=== PATIENT | male | born 1975 | race Caucasian/White ===

== ENCOUNTER → 2024-07-26 | Outpatient (CLI) | payer MEDICARE, MEDICAID, SELFPAY ==
--- NOTE | 2024-07-26 08:18 | XR_ITS ---
Examination: Right knee 4 views TECHNIQUE: Standing AP oblique lateral axial right knee 4 views Exam date and time: July 26, 2024 0918 hours Comparison December 05, 2023 INDICATIONS: Status post knee arthroplasty July 16, 2023. FINDINGS: Mild osteopenia Total right knee replacement Satisfactory alignment No loosening of the prosthetic components No fracture IMPRESSION: Total right knee replacement with satisfactory alignment
== END | disposition home or self-care (01) ==
LOC: CDIM 08:02
PROVIDERS: Referring Provider Orthopaedic Surgery Adult Reconstructive Orthopaedic Surgery; Visit Provider Orthopaedic Surgery Adult Reconstructive Orthopaedic Surgery
DX: M17.11 Unilateral primary osteoarthritis, right knee (principal); Z96.651 Presence of right artificial knee joint
CPT/HCPCS: 73564

== ENCOUNTER 2024-08-03 08:22 | Outpatient (AMB) | payer MEDICARE, MEDICAID, SELFPAY ==
[2024-08-03 08:38] VITALS: BP 161/92; PULSE 74; RESP 18; TEMP 36.3; O2SAT 98; BMI 30.1
--- NOTE | 2024-08-03 08:38 | PD.ORTHCLVIS ---
Vital signs 08/03/24 08:38 Height 1.78 m Height Method Stated Weight 95.51 kg Weight Measurement Method Standing Scale BMI 30.1 BP 161/92 H Blood Pressure Source Automatic Cuff Blood Pressure Location Right Upper Arm Position Sitting Respiration 18 Pulse 74 Pulse Source Monitor Temp 97.3 F Temp Source Temporal Artery Scan Pulse Oximetry (%) 98 Oxygen Delivery Method Room Air Med/Allergies Allergies & Medications Allergies carisoprodol [From Soma] Allergy (Severe, Verified 08/03/24 08:40) counter acts with epilepsy med,Seizure chloral hydrate Allergy (Severe, Verified 08/03/24 08:40) Swelling morphine Allergy (Severe, Verified 08/03/24 08:40) VOMITING tramadol Allergy (Severe, Verified 08/03/24 08:40) SWELLED Medication Reconciliation carbamazepine 200 mg tablet (Tegretol) 200 mg PO HS 07/06/19 [History Confirmed 08/03/24] carbamazepine 200 mg tablet,extended release,12 hr (Tegretol XR) 1,000 mg PO HS 07/06/19 [History Confirmed 08/03/24] carbamazepine 200 mg tablet,extended release,12 hr (Tegretol XR) 800 mg PO QDAY 07/06/19 [History Confirmed 08/03/24] phenobarbital 64.8 mg tablet 64.8 mg PO QDAY 07/06/19 [History Confirmed 08/03/24] amlodipine 5 mg tablet (Norvasc) 5 mg PO QDAY 07/08/23 [History Confirmed 08/03/24] clobazam 10 mg tablet 5 mg PO HS 07/08/23 [History Confirmed 08/03/24] lacosamide 200 mg tablet 200 mg PO BID 07/08/23 [History Confirmed 08/03/24] losartan 50 mg tablet (Cozaar) 50 mg PO QDAY 07/08/23 [History Confirmed 08/03/24] phenobarbital 64.8 mg tablet 64.8 mg PO QDAY 07/08/23 [History Confirmed 08/03/24] oxycodone-acetaminophen 5 mg-325 mg tablet (Percocet) 1 tab PO Q6H PRN pain #28 tabs 07/25/23 [Rx Confirmed 08/03/24] naproxen 500 mg tablet 500 mg PO bid #60 tabs 07/29/23 [Rx Confirmed 08/03/24] naproxen 500 mg tablet 500 mg PO bid #90 tabs 08/22/23 [Rx Confirmed 08/03/24] Subjective Visit Visit for: follow up visit and knee Immunization / Flu Flu Vaccine in the Last 12 Months: No Flu Vaccine Exclusion Criteria: No Exclusion Criteria History of Present Illness Chief complaint: 6 MONTHS FOLLOW UP TKA Date of 1st surgery (if applicable): 07/08/2023 Patient is now 6 months out from a right total knee replacement. He is doing well. He has no pain at all. He is very happy with his progress Personal History Red flag PMH: smoker Pain Pain level (0-10): 0 Pain duration: ALL DAY Pain location: anterior and posterior Pain quality: other (specify) (SORENESS NOT PAIN ) Pain timing: increases with activity Associated signs & symptoms: none Ambulatory data Ambulatory device: none Treatments Improvement with previous injections: No Number of Physical Therapy sessions: 2 Improvement with PT: No Improvement with NSAIDS: n/a Review of Systems Review of Systems: All systems negative unless otherwise noted in HPI. Exam Exam Patient is in no acute distress and is cooperative with the examination today. Patient has a normal mood and affect. Breathing is nonlabored. In no respiratory distress. Bilateral extremities were evaluated and demonstrates sensation intact to light touch. Palpable pedal pulses are present. No significant edema is present. Right knee incision is clean dry intact. Range of motion 0 to 110 degrees X-rays from 2023 demonstrate a cementless total knee replacement in good alignment and position Assessment and Plan Problem List (1) Status post total right knee replacement: Status: Acute Plan: Patient is doing well status post right total knee replacement who is doing well. Plan We will see him in approximately 6 months for Routine evaluation. We will also Give him some names of surgeons that specialize in total ankle replacement Office Procedures GNS Level of Care Nursing/Assessment Patient Status: Established Patient Nursing Assessment/Reassesment: Medication Reconciliation, Update PMH in EMR and Vital Signs Coordination of Care: Complex Care and Chronic Disease 1-5, Education Complex Pt/Fam, Consent,records obtained, informed consent, Results/Orders obtained and Staff clarify orders Established Patient Charge Established Patient Point Assignment: 95 Established Patient Point Charge: EP Level 3 (80-115) Past Medical History Past Medical History Have you ever been diagnosed with any of the following: Neurological Problems Seizures: Yes Epilepsy: Yes Head Trauma: Yes (concussion) Cardiology Problems Hypercholesterolemia: Yes Congestive Heart Failure: No Hypertension: Yes Respiratory Problems Chronic Obstructive Pulmonary Disease (COPD): No Asthma: Yes Stomache/Intestinal Problems Hepatitis: No Genital/Urinary Problems Renal Disease: No Musculoskeletal Problems Arthritis: Yes Fractures: Yes (left ankle, ribs, right shoulder, right hand) Endocrine Problems Diabetes Mellitus Type 1: No Diabetes Mellitus Type 2: No Blood Problems Anemia: No Clotting Problems: No Other Problems Hospitalization: Yes (neuro surgery-) Shingles: No Falls: No Blood Transfusions: No Blood Transfusion Reaction: No Anesthesia Reactions: No Chicken Pox: Yes Cancer: No Surgical History Total Knee Replacement: Yes
== END 2024-08-03 09:15 | disposition home or self-care (01) ==
LOC: HODSRG 08:22
PROVIDERS: PCP Internal Medicine; Referring Provider Internal Medicine; Supervising Provider Orthopaedic Surgery Adult Reconstructive Orthopaedic Surgery; Visit Provider Orthopaedic Surgery Adult Reconstructive Orthopaedic Surgery
DX: Z96.651 Presence of right artificial knee joint (principal); I10 Essential (primary) hypertension; E78.00 Pure hypercholesterolemia, unspecified
CPT/HCPCS: 99213; G0463

== ENCOUNTER → 2024-09-02 | Outpatient (CLI) | payer MEDICARE, MEDICAID, SELFPAY ==
--- NOTE | 2024-09-02 08:51 | XR_ITS ---
Examination: PA lateral chest 2 views TECHNIQUE: Upright AP lateral chest 2 views Exam date and time: September 02, 2024 0900 hours Comparison June 18, 2018 INDICATIONS: Coughing beginning 5 days ago, history bronchopneumonia, diagnosis hypertension asthma FINDINGS: Normal heart size Lungs are clear The osseous structures are intact IMPRESSION: No active disease
== END | disposition home or self-care (01) ==
PROVIDERS: PCP Internal Medicine; Referring Provider Internal Medicine; Visit Provider Internal Medicine
DX: R06.00 Dyspnea, unspecified (principal); R05.9 Cough, unspecified
CPT/HCPCS: 71046

== ENCOUNTER → 2024-10-20 | Outpatient (CLI) | payer MEDICARE, MEDICAID, SELFPAY ==
[2024-10-20 12:04] LABS: Basophils % (Auto) 1 % (0-2.5); Eosinophils # (Auto) 0.3 Thou/mm3 (0.0-0.5); Eosinophils % (Auto) 5 % (0-10); Hematocrit 42.9 % (41.0-53.0); Immature Granulocytes % (Auto) 0 % (0-0); Immature Granulocytes Auto 0.02 Thou/mm3 (0.00-0.00); Lymphocytes % (Auto) 20 % (10-50); Mean Corpuscular HGB Conc 32.6 g/dl (31.0-37.0); Mean Corpuscular Hemoglobin 28.7 pg (25.0-35.0); Mean Corpuscular Volume 88 fL (80-100); Monocytes # (Auto) 0.4 Thou/mm3 (0.0-0.8); Monocytes % (Auto) 8 % (0-12); Neutrophils # (Auto) 3.3 Thou/mm3 (1.8-7.7); Neutrophils % (Auto) 66 % (37-80); Nucleated Red Blood Cell % 0 /100 WBC (0); Platelet Count 273 Thou/mm3 (140-440); RDW Standard Deviation 40.9 fL (35.1-43.9); Red Blood Count 4.88 Miln/mm3 (4.50-5.90)
[2024-10-20 12:17] LABS: Sed Rate (ESR) 6 mm/hr (0-20)
[2024-10-20 12:19] LABS: Vitamin D 25 Hydroxy Total 17.7 ng/mL (7.3-40.2)
[2024-10-20 12:55] LABS: Glucose Estimated Average 108 mg/dL (80-131); Hemoglobin A1C 5.4 % Hgb (4.8-6.0)
[2024-10-20 12:56] LABS: Alanine Aminotransferase 16 U/L (10-49); Albumin, Serum 4.7 gm/dL (3.5-5.0); Albumin/Globulin Ratio 2.1 (1.2-2.2); Alkaline Phosphatase 125 U/L (46-116); Anion Gap 7 (7-16); Aspartate Amino Transferase 19 U/L (0-34); BUN/Creatinine Ratio 16 Ratio (12-20); Bilirubin,Total 0.3 mg/dL (0.3-1.2); Blood Urea Nitrogen 14 mg/dL (9-23); Carbon Dioxide 31.7 mMol/L (20.0-31.0); Cardiac Risk Estimate 3.8 RATIO (4.0-6.7); Chloride 103 mMol/L (98-107); Cholesterol 233 mg/dL (132-200); Creatinine (Component) 0.9 mg/dL (0.6-1.3); Free T4 (Free Thyroxine) 0.81 ng/dL (0.89-1.76); Globulin 2.2 gm/dL (2.3-3.5); Glucose 99 mg/dL (74-106); HDL Cholesterol 62 mg/dL (40-60); LDL Cholesterol,Calculated 157 mg/dL (0-130); Osmolality,Calculated 283 (275-295); Potassium 5.1 mMol/L (3.4-5.1); Sodium 142 mMol/L (136-145); Thyroid Stimulating Hormone 1.32 uIU/mL (0.55-4.78); Total Protein 6.9 gm/dL (5.7-8.2); Triglycerides 70 mg/dL (30-150); eGFR > 60 See Note
[2024-10-21 14:59] LABS: RA Screen Negative (Negative)
[2024-10-27 06:51] LABS: CCP Antibody (IgG)* <16 Units
== END | disposition home or self-care (01) ==
LOC: COPL 10:48
PROVIDERS: PCP Internal Medicine; Referring Provider Internal Medicine; Visit Provider Internal Medicine
DX: I11.0 Hypertensive heart disease with heart failure (principal); E11.9 Type 2 diabetes mellitus without complications; E55.9 Vitamin D deficiency, unspecified; E03.9 Hypothyroidism, unspecified
CPT/HCPCS: 36415; 80053; 80061; 82306; 83036; 84439; 84443; 85025; 85652; 86200; 86430

== ENCOUNTER → 2024-11-08 | Outpatient (CLI) | payer MEDICARE, MEDICAID, SELFPAY ==
--- NOTE | 2024-11-08 10:01 | XR_ITS ---
Examination: Bilateral knees 2 views Right lateral knee left lateral knee 2 views Bilateral axial knees single view TECHNIQUE: Bilateral AP knees standing single view, bilateral PA knees standing flexion, single view Standing right lateral knee left lateral knee 2 views Bilateral axial knees single view total 5 views Exam date and time: November 09, 2019 5:11 AM INDICATIONS: History right knee replacement July 09, 2023 Injury to both knees 2 days ago with pain FINDINGS: Mild osteopenia. Total right knee arthroplasty with satisfactory alignment No fracture Minimal osteoarthritis left patellofemoral joint No fracture IMPRESSION: No fracture or dislocation involving either knee
== END | disposition home or self-care (01) ==
PROVIDERS: PCP Internal Medicine; Referring Provider Orthopaedic Surgery Adult Reconstructive Orthopaedic Surgery; Visit Provider Orthopaedic Surgery Adult Reconstructive Orthopaedic Surgery
DX: S89.92XA Unspecified injury of left lower leg, initial encounter (principal); S89.91XA Unspecified injury of right lower leg, initial encounter; X58.XXXA Exposure to other specified factors, initial encounter; Z96.651 Presence of right artificial knee joint
CPT/HCPCS: 73564

== ENCOUNTER 2024-12-07 08:33 | Outpatient (AMB) | payer MEDICARE, MEDICAID, SELFPAY ==
--- NOTE | 2024-12-07 08:49 | PD.ORTHCLVIS ---
Vital signs 12/07/24 08:50 Height 1.78 m Height Method Stated Weight 91.852 kg Weight Measurement Method Standing Scale BMI 29.0 BP 160/91 H Blood Pressure Source Automatic Cuff Blood Pressure Location Left Upper Arm Position Sitting Respiration 19 Pulse 69 Pulse Source Monitor Temp 97.0 F Temp Source Temporal Artery Scan Pulse Oximetry (%) 96 Oxygen Delivery Method Room Air Med/Allergies Allergies & Medications Allergies carisoprodol (From Soma) Allergy (Severe, Verified 12/07/24 08:52) counter acts with epilepsy med,Seizure chloral hydrate Allergy (Severe, Verified 12/07/24 08:52) Swelling morphine Allergy (Severe, Verified 12/07/24 08:52) VOMITING tramadol Allergy (Severe, Verified 12/07/24 08:52) SWELLED Medication Reconciliation carbamazepine 200 mg tablet (Tegretol) 200 mg PO HS 07/06/19 [History Confirmed 12/07/24] phenobarbital 64.8 mg tablet 64.8 mg PO QDAY 07/06/19 [History Confirmed 12/07/24] amlodipine 5 mg tablet (Norvasc) 5 mg PO QDAY 07/08/23 [History Confirmed 12/07/24] clobazam 10 mg tablet 5 mg PO HS 07/08/23 [History Confirmed 12/07/24] lacosamide 200 mg tablet 200 mg PO BID 07/08/23 [History Confirmed 12/07/24] losartan 50 mg tablet (Cozaar) 50 mg PO QDAY 07/08/23 [History Confirmed 12/07/24] phenobarbital 64.8 mg tablet 64.8 mg PO QDAY 07/08/23 [History Confirmed 12/07/24] oxycodone-acetaminophen 5 mg-325 mg tablet (Percocet) 1 tab PO Q6H PRN pain #28 tabs 07/25/23 [Rx Confirmed 12/07/24] naproxen 500 mg tablet 500 mg PO bid #90 tabs 08/22/23 [Rx Confirmed 12/07/24] Exam Exam Patient is in no acute distress and is cooperative with the examination today. Patient has a normal mood and affect. Breathing is nonlabored. In no respiratory distress. Bilateral extremities were evaluated and demonstrates sensation intact to light touch. Palpable pedal pulses are present. No significant edema is present. Right knee incision is clean dry intact. Range of motion 0 to 110 degrees X-rays from October 2024 demonstrates a cementless total knee replacement good alignment position Assessment and Plan Problem List (1) Status post total right knee replacement: Status: Acute Plan: Patient is doing well status post right total knee replacement who is doing well. Plan We will see him in approximately 12 months for Routine evaluation. We will get new films of his right hip as it has been bothering him recently. He has she has a positive logroll and a positive FADIR Office Procedures GNS Level of Care Nursing/Assessment Patient Status: Established Patient Nursing Assessment/Reassesment: Medication Reconciliation, Update PMH in EMR and Vital Signs Coordination of Care: Complex Care and Chronic Disease 1-5, Education Complex Pt/Fam, Consent,records obtained, informed consent, Results/Orders obtained and Staff clarify orders Established Patient Charge Established Patient Point Assignment: 95 Established Patient Point Charge: EP Level 3 (80-115) MA Intake Visit Data Collection New Patient or Established: Established Patient (seen at [facility] within 3 years) Reason for Visit:: 6 MTH F/U Seen by Clinical Staff ONLY (RN/MA): No PCP or OBGYN visit in last 3 months: Yes Hx Now: No Do You Feel Safe at Home: Yes Authorities Contacted: N/A Questionairres Past Medical History Past Medical History Have you ever been diagnosed with any of the following: Neurological Problems Seizures: Yes Epilepsy: Yes Head Trauma: Yes (concussion) Cardiology Problems Hypercholesterolemia: Yes Congestive Heart Failure: No Hypertension: Yes Respiratory Problems Chronic Obstructive Pulmonary Disease (COPD): No Asthma: Yes Smoking: No Smoking Exposure: No Stomache/Intestinal Problems Hepatitis: No Genital/Urinary Problems Renal Disease: No Musculoskeletal Problems Arthritis: Yes Fractures: Yes (left ankle, ribs, right shoulder, right hand) Endocrine Problems Diabetes Mellitus Type 1: No Diabetes Mellitus Type 2: No Blood Problems Anemia: No Clotting Problems: No Other Problems Hospitalization: Yes (neuro surgery-) Shingles: No Falls: No Blood Transfusions: No Blood Transfusion Reaction: No Anesthesia Reactions: No Chicken Pox: Yes Cancer: No Surgical History Total Knee Replacement: Yes Subjective Visit Visit for: follow up visit and knee Immunization / Flu Flu Vaccine in the Last 12 Months: No Flu Vaccine Exclusion Criteria: No Exclusion Criteria History of Present Illness Chief complaint: right knee pain Shashi is a year and a half out from a right total knee replacement. He is doing well. He has no pain on his right knee. He reports that there is some groin pain. He thinks he might of pulled his groin Pain Pain level (0-10): 0 Ambulatory data Ambulatory device: none Treatments Improvement with previous injections: No Improvement with PT: No Improvement with NSAIDS: no Review of Systems Review of Systems: All systems negative unless otherwise noted in HPI.
[2024-12-07 08:50] VITALS: BP 160/91; PULSE 69; RESP 19; TEMP 36.1; O2SAT 96; BMI 29.0
--- NOTE | 2024-12-07 08:54 | XR_ITS ---
Examination:Right hip AP, lateral, AP pelvis 3 views Technique: Hip AP lateral, AP pelvis, 3 views Exam date and time:December 07, 2024 at 0909 hours INDICATIONS: Right hip pain 18 months. FINDINGS: Advanced right hip osteoarthritis Moderate left hip osteoarthritis No hip or pelvic fracture IMPRESSION: Advanced right hip osteoarthritis.
== END 2024-12-07 09:04 | disposition home or self-care (01) ==
LOC: HODSRG 08:33
PROVIDERS: PCP Internal Medicine; Referring Provider Internal Medicine; Supervising Provider Orthopaedic Surgery Adult Reconstructive Orthopaedic Surgery; Visit Provider Orthopaedic Surgery Adult Reconstructive Orthopaedic Surgery
DX: Z96.651 Presence of right artificial knee joint (principal); I10 Essential (primary) hypertension; E78.00 Pure hypercholesterolemia, unspecified
CPT/HCPCS: 73502; 99213; G0463

== ENCOUNTER 2025-01-06 07:56 | Outpatient (AMB) | payer MEDICARE, MEDICAID, SELFPAY ==
--- NOTE | 2025-01-06 08:08 | ORTHONT_ITS ---
Vital signs 01/06/25 08:09 Height 1.78 m Height Method Stated Weight 91.229 kg Weight Measurement Method Standing Scale BMI 28.8 BP 136/87 H Blood Pressure Source Automatic Cuff Blood Pressure Location Left Upper Arm Position Sitting Respiration 19 Pulse 72 Pulse Source Monitor Temp 97.5 F Temp Source Temporal Artery Scan Pulse Oximetry (%) 96 Oxygen Delivery Method Room Air Med/Allergies Allergies & Medications Allergies carisoprodol (From Soma) Allergy (Severe, Verified 01/06/25 08:10) counter acts with epilepsy med,Seizure chloral hydrate Allergy (Severe, Verified 01/06/25 08:10) Swelling morphine Allergy (Severe, Verified 01/06/25 08:10) VOMITING tramadol Allergy (Severe, Verified 01/06/25 08:10) SWELLED Medication Reconciliation carbamazepine 200 mg tablet (Tegretol) 200 mg PO HS 07/06/19 [History Confirmed 01/06/25] phenobarbital 64.8 mg tablet 64.8 mg PO QDAY 07/06/19 [History Confirmed 01/06/25] amlodipine 5 mg tablet (Norvasc) 5 mg PO QDAY 07/08/23 [History Confirmed 01/06/25] clobazam 10 mg tablet 5 mg PO HS 07/08/23 [History Confirmed 01/06/25] lacosamide 200 mg tablet 200 mg PO BID 07/08/23 [History Confirmed 01/06/25] losartan 50 mg tablet (Cozaar) 50 mg PO QDAY 07/08/23 [History Confirmed 01/06/25] phenobarbital 64.8 mg tablet 64.8 mg PO QDAY 07/08/23 [History Confirmed 01/06/25] oxycodone-acetaminophen 5 mg-325 mg tablet (Percocet) 1 tab PO Q6H PRN pain #28 tabs 07/25/23 [Rx Confirmed 01/06/25] naproxen 500 mg tablet 500 mg PO bid #90 tabs 08/22/23 [Rx Confirmed 01/06/25] meloxicam 7.5 mg tablet 7.5 mg PO QDAY #45 tabs 01/06/25 [Rx] Exam Exam Patient is in no acute distress and is cooperative with the examination today. Patient has a normal mood and affect. Breathing is nonlabored. In no respiratory distress. Right hip demonstrates no pain with logroll. Range of motion is preserved Bilateral extremities were evaluated and demonstrates sensation intact to light touch. Palpable pedal pulses are present. No significant edema is present. Right knee incision is clean dry intact. Range of motion is 0 to 110 degrees. X-rays from October 2024 demonstrates a cementless total knee replacement good alignment position X-rays of the right hip demonstrate moderate joint space narrowing Assessment and Plan Problem List (1) Arthritis of right hip: Status: Acute Plan: Patient is a pleasant 49-year-old male with right hip arthritis of mild to moderate severity. We will try anti-inflammatories including meloxicam. Should this not work, he would like to try a hip intra-articular injection. He does have back pathology on his x-rays and this would help differentiating the hip from the back. Office Procedures GNS Level of Care Nursing/Assessment Patient Status: Established Patient Nursing Assessment/Reassesment: Medication Reconciliation, Update PMH in EMR and Vital Signs Coordination of Care: Complex Care and Chronic Disease 1-5, Education Complex Pt/Fam, Consent,records obtained, informed consent, Results/Orders obtained and Staff clarify orders Established Patient Charge Established Patient Point Assignment: 95 Established Patient Point Charge: EP Level 3 (80-115) MA Intake Visit Data Collection New Patient or Established: Established Patient (seen at [facility] within 3 years) Reason for Visit:: FOLLOW UP KNEE PIAN/XRAY RESULTS Seen by Clinical Staff ONLY (RN/MA): No PCP or OBGYN visit in last 3 months: Yes Hx Now: No Do You Feel Safe at Home: Yes Authorities Contacted: N/A Questionairres Past Medical History Past Medical History Have you ever been diagnosed with any of the following: Neurological Problems Seizures: Yes Epilepsy: Yes Head Trauma: Yes (concussion) Cardiology Problems Hypercholesterolemia: Yes Congestive Heart Failure: No Hypertension: Yes Respiratory Problems Chronic Obstructive Pulmonary Disease (COPD): No Asthma: Yes Smoking: No Smoking Exposure: No Stomache/Intestinal Problems Hepatitis: No Genital/Urinary Problems Renal Disease: No Musculoskeletal Problems Arthritis: Yes Fractures: Yes (left ankle, ribs, right shoulder, right hand) Endocrine Problems Diabetes Mellitus Type 1: No Diabetes Mellitus Type 2: No Blood Problems Anemia: No Clotting Problems: No Other Problems Hospitalization: Yes (neuro surgery-) Shingles: No Falls: No Blood Transfusions: No Blood Transfusion Reaction: No Anesthesia Reactions: No Chicken Pox: Yes Cancer: No Surgical History Total Knee Replacement: Yes Subjective Visit Visit for: follow up visit, knee and x-rays (RESULTS) Immunization / Flu Flu Vaccine in the Last 12 Months: No Flu Vaccine Exclusion Criteria: No Exclusion Criteria History of Present Illness Chief complaint: right hip pain Alonzo is a pleasant 49-year-old male with a right hip pain. We previously did a knee replacement on him. He is doing well from his knee replacement. He reports that there is a lot of pain on the side in the buttocks. He does not have a lot of difficulty putting on socks and shoes Pain Pain level (0-10): 5 Pain duration: CONSTANT Pain location: inside (medial) and anterior Pain quality: dull and aching Pain timing: increases with activity Associated signs & symptoms: weakness Ambulatory data Ambulatory device: none Treatments Improvement with previous injections: No Improvement with PT: No Improvement with NSAIDS: no Review of Systems Review of Systems: All systems negative unless otherwise noted in HPI.
[2025-01-06 08:09] VITALS: BP 136/87; PULSE 72; RESP 19; TEMP 36.4; O2SAT 96; BMI 28.8
== END 2025-01-06 08:20 | disposition home or self-care (01) ==
LOC: HODSRG 07:56
PROVIDERS: PCP Internal Medicine; Referring Provider Internal Medicine; Supervising Provider Orthopaedic Surgery Adult Reconstructive Orthopaedic Surgery; Visit Provider Orthopaedic Surgery Adult Reconstructive Orthopaedic Surgery
DX: M16.11 Unilateral primary osteoarthritis, right hip (principal); I10 Essential (primary) hypertension; E78.00 Pure hypercholesterolemia, unspecified; M25.551 Pain in right hip
CPT/HCPCS: 99213; G0463

== ENCOUNTER → 2025-02-18 | Outpatient (CLI) | payer MEDICARE, MEDICAID, SELFPAY ==
--- NOTE | 2025-02-18 | XR_ITS ---
EXAMINATION: Ankle, left 3 views. Technique: Ankle AP, oblique, lateral 3 views Date and time of exam: February 18, 2025 1128 hours Comparison February 09, 2018 INDICATIONS: History left ankle trauma post ankle surgery, ankle pain years FINDINGS: Orthopedic screws traverse the distal tibia Advanced osteoarthritis tibiotalar joint Significant osteoarthritis subtalar joint No acute fracture No eunice cortical bone destruction IMPRESSION: Advanced osteoarthritis tibiotalar joint Significant osteoarthritis subtalar joint
--- NOTE | 2025-02-18 | XR_ITS ---
Examination: Lumbar spine, 5 views Technique: Lumbar spine AP, lateral, coned lateral lower lumbar spine, bilateral obliques 5 views Exam date and time: 06/20/2025 1128 hours INDICATIONS: Low back pain 2 years radiating down the right leg FINDINGS: Adequate alignment lumbar vertebral bodies Diffuse moderate to advanced facet arthropathy No lumbar fracture Prominent lumbar spondylosis No spondylolisthesis Advanced degenerative disc disease L4-L5, L5-S1 IMPRESSION: Advanced degenerative disc disease L4-L5, L5-S1 with significant spinal stenosis
== END | disposition home or self-care (01) ==
LOC: CDIM 11:19
PROVIDERS: PCP Internal Medicine; Referring Provider Internal Medicine; Visit Provider Internal Medicine
DX: M51.360 Other intervertebral disc degeneration, lumbar region with discogenic back pain only (principal); M48.061 Spinal stenosis, lumbar region without neurogenic claudication; M51.370 Other intervertebral disc degeneration, lumbosacral region with discogenic back pain only; M48.07 Spinal stenosis, lumbosacral region
CPT/HCPCS: 72110; 73610